=== PATIENT | male | born 1930 | race Hispanic/Latino ===

== ENCOUNTER 2018-09-09 11:19 | Day surgery (SDC) | payer MEDICARE, OTHER ==
[2018-09-09] MEDS ORDERED: NEOFRIN OD ONE (11:40)
[2018-09-09] MEDS ORDERED: IOPIDINE OD ONE (11:40)
[2018-09-09] MEDS ORDERED: MYDRIACYL OD ONE (11:41)
[2018-09-09 12:05] VITALS: BP 150/48
== END 2018-09-09 12:59 | disposition home or self-care (01) ==
LOC: OR 11:19
PROVIDERS: ATTEND Specialist
DX: H26.491 Other secondary cataract, right eye (principal); E78.00 Pure hypercholesterolemia, unspecified; I10 Essential (primary) hypertension; G47.30 Sleep apnea, unspecified; Z79.899 Other long term (current) drug therapy; Z79.82 Long term (current) use of aspirin; Z87.891 Personal history of nicotine dependence; Z98.41 Cataract extraction status, right eye; Z95.1 Presence of aortocoronary bypass graft; Z87.442 Personal history of urinary calculi; Z72.89 Other problems related to lifestyle; Z98.890 Other specified postprocedural states